=== PATIENT | male | born 1960 | race Caucasian/White ===

== ENCOUNTER → 2020-12-06 | Outpatient (CLI) | payer SELFPAY ==
[~2020-12-06] MED LIST: 'PARAFON FORTE500 M1 PO; BP MED; CELEXA20 MG; CEPHALEXIN500 M1 PO; CYCLOBENZAPRINE10 MG PO; IMITREX100 MG; VICODIN 5-3001 EACH PO; VICODIN 5/500 505 MG PO; XANAX0.25 MG; XANAX0.25 MG PO; ZESTRIL10 MG PO; ZITHROMAX Z PA250 MG PO; ZOFRAN ODT4 MG SL
== END | disposition home or self-care (01) ==
LOC: COVID19 12:55
PROVIDERS: ATTEND Student in an Organized Health Care Education/Training Program
DX: U07.1 COVID-19 (principal)

== ENCOUNTER 2021-09-27 15:25 | Emergency (ER) | payer OTHER ==
[~2021-09-27] VITALS: Ht 175.2 cm; Wt 77.1 kg
[2021-09-27] MEDS ORDERED: TYLENOL325 M1 PO (17:09)
[2021-09-27] MEDS ORDERED: NAPROXEN250 MG PO (17:09)
== END 2021-09-27 17:12 | disposition home or self-care (01) ==
LOC: ED 15:25
DX: K40.90 Unilateral inguinal hernia, without obstruction or gangrene, not specified as recurrent (principal); Z91.010 Allergy to peanuts; Z79.899 Other long term (current) drug therapy